=== PATIENT | male | born 1940 | race Caucasian/White ===

== ENCOUNTER 2017-01-05 17:43 | Inpatient (IN) | payer OTHER, MEDICAID ==
[~2017-01-05] VITALS: Ht 172.7 cm; Wt 80.3 kg
[~2017-01-05 17:43] MED LIST: ATOR-2 PO; CARV12.545 PO; FURO-152 PO; LISI10TA5 PO; METF500T4 PO; WARF5TAB73 PO
[2017-01-05] MEDS ORDERED: VANCOMYCIN 1 G PREMIX 200 ML IV ONE (18:15)
[2017-01-05] MEDS ORDERED: PIPERACILLIN/TAZ 3.375G PREMIX 50 ML IV ONE (18:15)
[2017-01-05 18:45] LABS: BASOPHILS % 0.6 % (0.0-2.0); EOSINOPHILS % 0.3 % (0.0-5.0); HEMATOCRIT. 32.5 % (42.0-52.0); HEMOGLOBIN. 10.8 g/dL (14.0-18.0); LYMPHOCYTES % 12.8 % (20.0-50.0); MEAN CORPUSCULAR HEMOGLOBIN 27.7 pg (28.0-32.0); MEAN CORPUSCULAR VOLUME 83.1 fL (80.0-94.0); MEAN PLATELET VOLUME 8.1 fl (7.4-10.4); MONOCYTES % 6.1 % (2.0-8.0); NEUTROPHILS % 80.2 % (40.0-76.0); PLATELET 307 x1000/uL (130-400); RED BLOOD CELL COUNT 3.91 mill/uL (4.7-6.1); RED CELL DISTRIBUTION WIDTH 15.6 % (11.6-14.6)
[2017-01-05 18:58] LABS: INR 3.7; PARTIAL THROMBOPLASTIN TIME 41.8 sec (24.0-34.0); PROTHROMBIN TIME 38.5 sec
[2017-01-05 18:59] LABS: CARBON DIOXIDE 30 mEq/L (21-32); CHLORIDE 95 mEq/L (98-107)
[2017-01-05 19:00] LABS: TROPONIN I < 0.02 ng/mL (0.00-0.04)
[2017-01-05 19:14] LABS: GLUCOSE URINE NEGATIVE (NEGATIVE); KETONES URINE 1+ (NEGATIVE); LEUKOCYTE ESTERASE URINE 3+ (NEGATIVE); NITRITE URINE POSITIVE (NEGATIVE); OCCULT BLOOD URINE 3+ (NEGATIVE); PH URINE 8.5 (4.5-8.0); PROTEIN URINE 3+ (NEGATIVE); SPECIFIC GRAVITY URINE 1.013 (1.005-1.030)
[2017-01-05 19:15] LABS: COLOR URINE BLOODY (YELLOW)
[2017-01-05] MEDS ORDERED: KCL 10MEQ/50ML PREMIX 50 ML IV ONE (19:15)
[2017-01-05 19:17] LABS: CLARITY URINE CLOUDY (CLEAR)
[2017-01-05] MEDS ORDERED: FUROSEMIDE 20MG/2ML VIAL IVP ONE (21:00)
[2017-01-05 22:00] VITALS: BP 116/72
[2017-01-05] MEDS ORDERED: DIPHENHYDRAMINE 50MG/ML VIAL IV PRN (23:45)
[2017-01-05] MEDS ORDERED: CLONIDINE 0.1MG TABLET PO PRN (23:45)
[2017-01-05] MEDS ORDERED: DEXTROSE 50% WATER 50ML SYRINGE IV PRN (23:45)
[2017-01-05] MEDS ORDERED: ACETAMINOPHEN 325MG TABLET PO PRN (23:45)
[2017-01-05] MEDS ORDERED: ONDANSETRON HCL 4MG/2ML VIAL IV PRN (23:45)
[2017-01-05] MEDS ORDERED: MAGNESIUM/ALUMINUM HYDROXIDE/SIMETHICONE 30ML UDC PO PRN (23:45)
[2017-01-06] VITALS (7 sets, daily range): BP systolic 94–116; BP diastolic 47–68
[2017-01-06] MEDS: SODIUM CHLORIDE 0.9% 1,000 ML IV SCH ×2 (01:27→13:04)
[2017-01-06] MEDS ORDERED: GENTAMICIN SULFATE 140 MG in SODIUM CHLORIDE 0.9% 96.5 ML IV NR (05:00)
[2017-01-06] MEDS: BLOOD SUGAR DIAGNOSTIC STRIP TEST SCH ×3 (06:31→18:08)
[2017-01-06] MEDS: INSULIN LISPRO 100 UNITS/ML SUBCUT SCH ×3 (06:34→18:08)
[2017-01-06 06:46] LABS: INR 2.8; PROTHROMBIN TIME 28.9 sec
[2017-01-06] MEDS ORDERED: TAMSULOSIN HCL 0.4MG SR CAPSULE PO SCH (09:00)
[2017-01-06] MEDS ORDERED: CARVEDILOL 25MG TABLET PO SCH (09:00)
[2017-01-06] MEDS ORDERED: WARFARIN SODIUM 2MG TABLET PO SCH (18:00)
[2017-01-06] MEDS ORDERED: DIGOXIN 125MCG TABLET PO SCH (18:00)
[2017-01-06] MEDS ORDERED: GENTAMICIN 120MG PREMIX 100 ML IV SCH (21:00)
[2017-01-06] MEDS ORDERED: ATORVASTATIN CALCIUM 40MG TABLET PO SCH (21:00)
== END 2017-01-06 20:40 | disposition short-term general hospital (02) | DRG 871 ==
LOC: ER 17:43 → 8WST 19:33 → ENRESERV 20:10 → EDBEDREQ 20:15
PROVIDERS: ADMIT Internal Medicine; ATTEND Internal Medicine
DX: A41.9 Sepsis, unspecified organism (principal); G92 Toxic encephalopathy; I50.41 Acute combined systolic (congestive) and diastolic (congestive) heart failure; N39.0 Urinary tract infection, site not specified; E11.9 Type 2 diabetes mellitus without complications; E78.00 Pure hypercholesterolemia, unspecified; I48.91 Unspecified atrial fibrillation; Z85.46 Personal history of malignant neoplasm of prostate; Z86.73 Personal history of transient ischemic attack (TIA), and cerebral infarction without residual deficits
CPT/HCPCS: 36415; 70450; 71010; 80053; 81001; 82962; 83036; 83605; 83690; 83735; 83880; 84484; 85025; 85610; 85730; 87040; 87077; 87086; 87186; 93005; 96365; 96367; 99291; C1893; J1580; J1815; J1940; J2543; J3370; J3480; J7030; J7040; J7050

== ENCOUNTER 2017-09-06 11:56 | Emergency (ER) | payer OTHER, MEDICAID ==
[~2017-09-06] VITALS: Ht 167.6 cm; Wt 80.0 kg
[2017-09-06] MEDS ORDERED: LEVOFLOXACIN 750MG PREMIX 150 ML IV ONE (12:30)
[2017-09-06] MEDS ORDERED: SODIUM CHLORIDE 0.9% 1000ML BAG (SEPSIS BOLUS) IV ONE (12:30)
[2017-09-06] MEDS ORDERED: OSELTAMIVIR 75MG CAPSULE PO ONE (12:30)
[2017-09-06 13:18] LABS: BASOPHILS % 0.2 % (0.0-2.0); EOSINOPHILS % 0.1 % (0.0-5.0); HEMATOCRIT. 24.4 % (42.0-52.0); HEMOGLOBIN. 7.8 g/dL (14.0-18.0); LYMPHOCYTES % 13.7 % (20.0-50.0); MEAN PLATELET VOLUME 7.8 fl (7.4-10.4); MONOCYTES % 7.3 % (2.0-8.0); NEUTROPHILS % 78.7 % (40.0-76.0); PLATELET 348 x1000/uL (130-400); RED BLOOD CELL COUNT 3.01 mill/uL (4.7-6.1); RED CELL DISTRIBUTION WIDTH 17.4 % (11.6-14.6)
[2017-09-06 13:19] LABS: INR 1.7; PARTIAL THROMBOPLASTIN TIME 35.9 sec (23.4-31.0); PROTHROMBIN TIME 17.7 sec (9.4-11.6)
[2017-09-06 13:22] LABS: CHLORIDE 96 mEq/L (98-107)
[2017-09-06 13:27] LABS: TROPONIN I 0.03 ng/mL (0.00-0.04)
[2017-09-06] MEDS ORDERED: KCL 20MEQ/100ML PREMIX 100 ML IV ONE (13:45)
[2017-09-06] MEDS ORDERED: POTASSIUM CHLORIDE 20MEQ TABLET SR PO ONE (13:45)
[2017-09-06 14:21] LABS: CLARITY URINE CLOUDY (CLEAR); COLOR URINE YELLOW (YELLOW); KETONES URINE NEGATIVE (NEGATIVE); LEUKOCYTE ESTERASE URINE 3+ (NEGATIVE); NITRITE URINE NEGATIVE (NEGATIVE); OCCULT BLOOD URINE 3+ (NEGATIVE); PROTEIN URINE 1+ (NEGATIVE); SPECIFIC GRAVITY URINE 1.015 (1.005-1.030)
[2017-09-06 17:17] VITALS: BP 96/60
== END 2017-09-06 17:42 | disposition short-term general hospital (02) ==
LOC: ER 12:13
DX: A41.9 Sepsis, unspecified organism (principal); N39.0 Urinary tract infection, site not specified; R65.20 Severe sepsis without septic shock; E87.6 Hypokalemia; J44.9 Chronic obstructive pulmonary disease, unspecified; I48.91 Unspecified atrial fibrillation; I10 Essential (primary) hypertension; E11.9 Type 2 diabetes mellitus without complications; Z79.01 Long term (current) use of anticoagulants; Z85.46 Personal history of malignant neoplasm of prostate; Z86.73 Personal history of transient ischemic attack (TIA), and cerebral infarction without residual deficits
CPT/HCPCS: 36415; 71045; 80053; 81003; 83605; 83880; 84484; 85025; 85610; 85730; 86850; 86900; 86901; 87040; 87077; 87086; 87186; 87804; 93005; 96365; 96366; 99291; J1956; J3480; J7030; J7040

== ENCOUNTER 2017-10-11 07:43 | Inpatient (IN) | payer OTHER, MEDICAID ==
[~2017-10-11] VITALS: Ht 170.2 cm; Wt 64.4 kg
[~2017-10-11 07:43] MED LIST changes: +WARF-53 PO; -WARF5TAB73 PO
[2017-10-11] MEDS ORDERED: SODIUM CHLORIDE 0.9% 1,000 ML IV ONE (08:14)
[2017-10-11 09:43] LABS: BASOPHILS % 0.1 % (0.0-2.0); EOSINOPHILS % 0.1 % (0.0-5.0); HEMATOCRIT. 24.3 % (42.0-52.0); HEMOGLOBIN. 7.9 g/dL (14.0-18.0); LYMPHOCYTES % 10.7 % (20.0-50.0); MEAN CORPUSCULAR HEMOGLOBIN 26.5 pg (28.0-32.0); MEAN CORPUSCULAR VOLUME 82.1 fL (80.0-94.0); MEAN PLATELET VOLUME 7.8 fl (7.4-10.4); MONOCYTES % 4.1 % (2.0-8.0); PLATELET 341 x1000/uL (130-400); RED BLOOD CELL COUNT 2.97 mill/uL (4.7-6.1); RED CELL DISTRIBUTION WIDTH 19.2 % (11.6-14.6)
[2017-10-11 09:45] LABS: CHLORIDE 101 mEq/L (98-107)
[2017-10-11] MEDS ORDERED: PIPERACILLIN/TAZ 3.375G PREMIX 50 ML IV ONE (09:45)
[2017-10-11 09:48] LABS: PROTHROMBIN TIME 91.4 sec (9.4-11.6)
[2017-10-11 09:57] LABS: INR 8.8
[2017-10-11 10:04] LABS: DIGOXIN 0.2 ng/mL (0.9-2.0)
[2017-10-11] MEDS ORDERED: SODIUM CHLORIDE 0.9% 1000ML BAG (SEPSIS BOLUS) IV ONE (10:15)
[2017-10-11] MEDS ORDERED: DILTIAZEM HCL 5MG/ML 5ML VIAL IV ONE (10:15)
[2017-10-11] MEDS ORDERED: DIGOXIN 500MCG/2ML AMP IV ONE (10:15)
[2017-10-11] MEDS ORDERED: DEXTROSE 50% WATER 50ML SYRINGE IV PRN (10:30)
[2017-10-11 10:39] LABS: KETONES URINE NEGATIVE (NEGATIVE); LEUKOCYTE ESTERASE URINE 1+ (NEGATIVE); NITRITE URINE NEGATIVE (NEGATIVE); OCCULT BLOOD URINE 3+ (NEGATIVE); PROTEIN URINE 1+ (NEGATIVE); SPECIFIC GRAVITY URINE 1.006 (1.005-1.030); UROBILINOGEN URINE 0.2 E.U./dL (0.2-1.0)
[2017-10-11 10:43] LABS: CLARITY URINE TURBID (CLEAR); COLOR URINE BLOODY (YELLOW)
[2017-10-11] MEDS ORDERED: PHYTONADIONE 10MG/ML AMP IM ONE (10:45)
[2017-10-11] MEDS ORDERED: CEFTRIAXONE 1 G PREMIX 50 ML IV SCH (12:00)
[2017-10-11] MEDS ORDERED: AZITHROMYCIN 500 MG TABLET PO SCH (12:00)
[2017-10-11] MEDS: BLOOD SUGAR DIAGNOSTIC STRIP TEST SCH ×3 (13:00→20:37)
[2017-10-11] MEDS: INSULIN LISPRO 100 UNITS/ML SUBCUT SCH ×3 (13:20→20:37)
[2017-10-11 13:50] VITALS: BP 95/45
[2017-10-11] MEDS: DILTIAZEM HCL 30MG TABLET PO SCH ×2 (14:00→21:02)
[2017-10-11] MEDS: AZITHROMYCIN 500 MG TABLET PO SCH (14:00)
[2017-10-11] MEDS ORDERED: VERAPAMIL HCL 2.5 MG/1 ML 2ML VIAL IV PRN (14:00)
[2017-10-11 16:00] VITALS: BP 108/67
[2017-10-11 16:28] LABS: HEMATOCRIT 27.5 % (42.0-52.0); HEMOGLOBIN 8.8 g/dL (14.0-18.0)
[2017-10-11] MEDS: CARVEDILOL 12.5MG TABLET PO SCH (17:29)
[2017-10-11 18:00] VITALS: BP 97/61
[2017-10-11] MEDS ORDERED: PNEUMOCOCCAL 23-VAL P-SAC VAC 0.5 ML IM ONE (19:30)
[2017-10-11 19:36] LABS: HEMATOCRIT 25.6 % (42.0-52.0); HEMOGLOBIN 8.2 g/dL (14.0-18.0)
[2017-10-11 20:00] VITALS: BP 93/54
[2017-10-11] MEDS: ATORVASTATIN CALCIUM 40MG TABLET PO SCH (20:35)
[2017-10-11 22:00] VITALS: BP 95/61
[2017-10-12] VITALS (12 sets, daily range): BP systolic 91–112; BP diastolic 42–69
[2017-10-12] MEDS: DILTIAZEM HCL 30MG TABLET PO SCH ×3 (05:16→22:44)
[2017-10-12 07:44] LABS: BASOPHILS % 0.2 % (0.0-2.0); HEMATOCRIT. 24.9 % (42.0-52.0); LYMPHOCYTES % 8.3 % (20.0-50.0); MEAN CORPUSCULAR HEMOGLOBIN 26.9 pg (28.0-32.0); MEAN CORPUSCULAR VOLUME 83.7 fL (80.0-94.0); MONOCYTES % 3.7 % (2.0-8.0); NEUTROPHILS % 87.8 % (40.0-76.0); PLATELET 311 x1000/uL (130-400); RED BLOOD CELL COUNT 2.97 mill/uL (4.7-6.1); RED CELL DISTRIBUTION WIDTH 19.2 % (11.6-14.6)
[2017-10-12 07:54] LABS: PROTHROMBIN TIME 43.4 sec (9.4-11.6)
[2017-10-12] MEDS: INSULIN LISPRO 100 UNITS/ML SUBCUT SCH ×4 (08:00→21:00)
[2017-10-12] MEDS: BLOOD SUGAR DIAGNOSTIC STRIP TEST SCH ×4 (08:03→20:54)
[2017-10-12] MEDS: AZITHROMYCIN 500 MG TABLET PO SCH (08:17)
[2017-10-12 08:26] LABS: INR 4.1
[2017-10-12] MEDS: CARVEDILOL 12.5MG TABLET PO SCH ×2 (08:56→17:00)
[2017-10-12] MEDS ORDERED: CEFTRIAXONE 1 G PREMIX 50 ML IV SCH (09:00)
[2017-10-12] MEDS ORDERED: LISINOPRIL 10MG TABLET PO SCH (09:00)
[2017-10-12] MEDS ORDERED: PHYTONADIONE 10MG/ML AMP SUBCUT SCH (10:00)
[2017-10-12] MEDS: SODIUM CHLORIDE 0.9% 1,000 ML IV SCH ×2 (10:26→22:45)
[2017-10-12] MEDS ORDERED: MAGNESIUM 2 G PREMIX 50 ML IV NR (11:00)
[2017-10-12 15:18] LABS: HEMATOCRIT 25.3 % (42.0-52.0); HEMOGLOBIN 7.9 g/dL (14.0-18.0)
[2017-10-12] MEDS: ATORVASTATIN CALCIUM 40MG TABLET PO SCH (20:54)
[2017-10-12] MEDS ORDERED: VANCOMYCIN 1250MG in DEXTROSE 5% WATER 250ML IV SCH (22:00)
[2017-10-12 23:03] LABS: HEMATOCRIT 23.6 % (42.0-52.0); HEMOGLOBIN 7.5 g/dL (14.0-18.0)
[2017-10-13] VITALS (14 sets, daily range): BP systolic 93–118; BP diastolic 52–72
[2017-10-13 05:37] LABS: BASOPHILS % 0.1 % (0.0-2.0); EOSINOPHILS % 0.1 % (0.0-5.0); HEMATOCRIT. 24.9 % (42.0-52.0); HEMOGLOBIN. 7.9 g/dL (14.0-18.0); LYMPHOCYTES % 9.1 % (20.0-50.0); MEAN CORPUSCULAR HEMOGLOBIN 26.6 pg (28.0-32.0); MEAN CORPUSCULAR VOLUME 84.2 fL (80.0-94.0); MONOCYTES % 3.4 % (2.0-8.0); NEUTROPHILS % 87.3 % (40.0-76.0); PLATELET 292 x1000/uL (130-400); RED BLOOD CELL COUNT 2.96 mill/uL (4.7-6.1); RED CELL DISTRIBUTION WIDTH 19.3 % (11.6-14.6)
[2017-10-13] MEDS: DILTIAZEM HCL 30MG TABLET PO SCH ×3 (05:55→14:00)
[2017-10-13] MEDS: INSULIN LISPRO 100 UNITS/ML SUBCUT SCH ×4 (08:00→21:00)
[2017-10-13] MEDS: BLOOD SUGAR DIAGNOSTIC STRIP TEST SCH ×4 (08:29→21:00)
[2017-10-13] MEDS: CARVEDILOL 12.5MG TABLET PO SCH ×3 (09:24→21:00)
[2017-10-13] MEDS: AZITHROMYCIN 500 MG TABLET PO SCH (09:24)
[2017-10-13 09:26] LABS: CREATINE KINASE 121 IU/L (39-308)
[2017-10-13] MEDS ORDERED: MEROPENEM 1,000 MG in SODIUM CHLORIDE 0.9% 100 ML IV SCH (10:45)
[2017-10-13] MEDS ORDERED: IPRATROPIUM/ALBUTEROL 0.5-3(2.5)MG/3ML NEB HHN PRN (12:15)
[2017-10-13] MEDS ORDERED: MEROPENEM 500MG in NORMAL SALINE 50ML IV SCH (13:00)
[2017-10-13] MEDS ORDERED: IPRATROPIUM/ALBUTEROL 0.5-3(2.5)MG/3ML NEB HHN SCH (13:00)
[2017-10-13] MEDS: SODIUM CHLORIDE 0.9% 1,000 ML IV SCH (13:27)
[2017-10-13 16:33] LABS: HEMATOCRIT 23.1 % (42.0-52.0); HEMOGLOBIN 7.4 g/dL (14.0-18.0)
[2017-10-13 16:37] LABS: PROTHROMBIN TIME 20.7 sec (9.4-11.6)
[2017-10-13] MEDS ORDERED: DIGOXIN 500MCG/2ML AMP IV SCH (18:00)
[2017-10-13] MEDS ORDERED: VANCOMYCIN 1 G PREMIX 200 ML IV NR (20:00)
[2017-10-13] MEDS: ATORVASTATIN CALCIUM 40MG TABLET PO SCH (21:06)
[2017-10-15 08:24] LABS: A/G RATIO 0.5 (0.7-1.7); ALBUMIN 1.6 g/dL (2.9-4.4); ALPHA-1-GLOBULIN 0.4 g/dL (0.0-0.4); ALPHA-2-GLOBULIN 0.7 g/dL (0.4-1.0); BETA GLOBULIN 0.9 g/dL (0.7-1.3); GAMMA GLOBULINS 1.3 g/dL (0.4-1.8); GLOBULIN TOTAL 3.3 g/dL (2.2-3.9); M-SPIKE Not Observed g/dL (Not Observed); TOTAL PROTEIN SERUM 4.9 g/dL (6.0-8.5)
== END 2017-10-13 22:00 | disposition short-term general hospital (02) | DRG 871 ==
LOC: ER 08:17 → 5EST 10:14 → EDBEDREQ 10:17 → EDBEDREQTM 10:17 → ENRESERV 12:33 → 5EST 14:03
PROVIDERS: ADMIT Internal Medicine; ATTEND Internal Medicine
DX: A41.9 Sepsis, unspecified organism (principal); E43 Unspecified severe protein-calorie malnutrition; N17.0 Acute kidney failure with tubular necrosis; J18.9 Pneumonia, unspecified organism; D68.9 Coagulation defect, unspecified; E11.22 Type 2 diabetes mellitus with diabetic chronic kidney disease; E11.621 Type 2 diabetes mellitus with foot ulcer; E87.2 Acidosis; N39.0 Urinary tract infection, site not specified; I13.0 Hypertensive heart and chronic kidney disease with heart failure and stage 1 through stage 4 chronic kidney disease, or unspecified chronic kidney disease; N13.30 Unspecified hydronephrosis; I69.354 Hemiplegia and hemiparesis following cerebral infarction affecting left non-dominant side; D64.9 Anemia, unspecified; E78.5 Hyperlipidemia, unspecified; I48.2 Chronic atrial fibrillation; F03.90 Unspecified dementia, unspecified severity, without behavioral disturbance, psychotic disturbance, mood disturbance, and anxiety; L97.509 Non-pressure chronic ulcer of other part of unspecified foot with unspecified severity; I50.9 Heart failure, unspecified; L89.90 Pressure ulcer of unspecified site, unspecified stage; N18.9 Chronic kidney disease, unspecified; R31.0 Gross hematuria; Z79.01 Long term (current) use of anticoagulants; Z85.46 Personal history of malignant neoplasm of prostate; Z68.22 Body mass index [BMI] 22.0-22.9, adult
CPT/HCPCS: 36415; 71045; 76770; 80048; 80053; 80162; 80202; 81003; 82550; 82962; 83605; 83735; 83880; 84155; 84165; 84443; 84484; 85014; 85018; 85025; 85610; 86850; 86900; 87040; 87077; 87086; 87186; 93005; 93306; 96361; 96365; 96366; 96368; 96372; 96375; 99291; J0696; J1160; J1815; J2185; J2543; J3370; J3430; J3475; J7030; J7050; J7620; A4315